=== PATIENT | male | born 1980 | race Caucasian/White ===

== ENCOUNTER 2022-10-04 18:08 | Emergency (ER) | payer MEDICAID ==
[~2022-10-04] VITALS: Ht 167.6 cm; Wt 83.0 kg
--- NOTE | 2022-10-04 18:15 | NUR ---
DR FARIA IN ROOMFOR EXAM
--- NOTE | 2022-10-04 18:40 | NUR ---
PT COMES TO ER WITH C/O VARUN UPPER BACK PAIN X 2 DAYS. DENEIS ANY ACUTE INJURY.
[2022-10-04] MEDS ORDERED: KETOROLAC 30 MG/ML VIAL IM ONE (18:45)
--- NOTE | 2022-10-04 18:51 | NUR ---
MEDICATED ORDERED, WILL MONITOR
[2022-10-04] MEDS ORDERED: ATA25 PO (18:54)
[2022-10-04] MEDS ORDERED: LID5T TP (18:54)
[2022-10-04] MEDS ORDERED: MIRABULK PO (18:54)
[2022-10-04] MEDS ORDERED: IBUP-2213 PO (18:54)
[2022-10-04 19:03] VITALS: BP 131/81
--- NOTE | 2022-10-04 19:03 | NUR ---
Patient discharged with v/s stable. Written and verbal after care instructions given and explained. Patient verbalized understanding. Ambulatory with steady gait. All questions addressed prior to discharge. Advised to follow up with PMD.
== END 2022-10-04 19:03 | disposition home or self-care (01) ==
LOC: MED 18:08
DX: S16.1XXA Strain of muscle, fascia and tendon at neck level, initial encounter (principal); K59.00 Constipation, unspecified; F43.9 Reaction to severe stress, unspecified; M25.511 Pain in right shoulder; M25.512 Pain in left shoulder; F17.210 Nicotine dependence, cigarettes, uncomplicated; Z72.89 Other problems related to lifestyle; Z88.0 Allergy status to penicillin; Z79.899 Other long term (current) drug therapy; X58.XXXA Exposure to other specified factors, initial encounter; Y93.89 Activity, other specified; Y92.89 Other specified places as the place of occurrence of the external cause; Y99.8 Other external cause status
CPT/HCPCS: 96372; 99283; J1885